=== PATIENT | male | born 1940 | race Caucasian/White ===

== ENCOUNTER 2020-09-26 10:26 | Emergency (ER) | payer MEDICARE, MEDICAID ==
[~2020-09-26] VITALS: Ht 165.1 cm; Wt 71.7 kg
[2020-09-26] MEDS ORDERED: CHOLESTEROL MED (10:42)
[2020-09-26] MEDS ORDERED: NEURONTIN 300M300 M2 (10:42)
[2020-09-26 11:11] LABS: ABSOLUTE EOSINOPHILS 0.2 thou/uL (0.0-0.7); ABSOLUTE LYMPHOCYTES 1.5 thou/uL (0.8-5.3); ABSOLUTE MONOCYTES 0.5 thou/uL (0.0-1.2); ABSOLUTE NEUTROPHILS 5.8 thou/uL (1.6-8.1); BASOPHILS 0.6 %; EOSINOPHILS 2.1 %; HEMATOCRIT 42.9 % (42.0-52.0); HEMOGLOBIN 14.1 gm/dL (14.0-18.0); LYMPHOCYTES 18.9 %; MCH 29.6 pg (26.0-34.0); MCHC 32.8 g/dL (28.0-37.0); MCV 90.2 fL (80.0-100.0); MONOCYTES 6.3 %; MPV 7.4 fl. (7.2-11.1); NUCLEATED RBCS 0 /100WBC; PLATELET COUNT* 192 thou/uL (150-400); POLYS 72.1 %; RBC 4.75 mil/uL (4.50-6.00); RDW-CV 13.5 % (10.5-14.5); WBC 8.1 thou/uL (4.0-11.0)
[2020-09-26 11:23] LABS: APTT 24.8 Seconds (25.0-31.3); INR 1.1; PROTIME 11.4 Seconds (9.20-11.50)
[2020-09-26 11:24] LABS: CALCIUM 9.7 mg/dL (8.5-10.1); CREATININE 0.7 mg/dL (0.6-1.3); POTASSIUM 3.8 mmol/L (3.5-5.1)
[2020-09-26 11:31] LABS: ALBUMIN 3.5 g/dL (3.4-5.0); MAGNESIUM 2.4 mg/dL (1.8-2.4); TOTAL BILIRUBIN 0.8 mg/dL (<0.1-1.0); TOTAL PROTEIN 8.1 g/dL (6.4-8.2)
[2020-09-26] MEDS ORDERED: HYDROCODON-ACE1 EAC7 PO (11:36)
[2020-09-26] MEDS ORDERED: ACYCLOVIR 800800 MG PO (11:36)
[2020-09-26 13:25] VITALS: BP 108/57
--- NOTE | 2020-09-27 09:43 | EKG ---
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
== END 2020-09-26 13:26 | disposition home or self-care (01) ==
LOC: M.ERS 10:26
PROVIDERS: Emergency Medicine Emergency Medical Services
DX: B02.9 Zoster without complications (principal); E78.00 Pure hypercholesterolemia, unspecified

== ENCOUNTER 2020-11-30 22:02 | Observation (INO) | payer MEDICARE, MEDICAID ==
[~2020-11-30] VITALS: Ht 152.4 cm; Wt 73.5 kg
[~2020-11-30 22:02] MED LIST: ACYCLOVIR 800800 MG PO; CHOLESTEROL MED; HYDROCODON-ACE1 EAC7 PO; NEURONTIN 300M300 M2
[2020-11-30 22:04] VITALS: BP 131/83
[2020-11-30] MEDS ORDERED: HYSINGLA ER40 MG PO (22:22)
[2020-11-30 22:23] LABS: ABSOLUTE BASOPHILS 0.1 thou/uL (0.0-0.2); ABSOLUTE EOSINOPHILS 0.4 thou/uL (0.0-0.7); ABSOLUTE LYMPHOCYTES 2.4 thou/uL (0.8-5.3); ABSOLUTE MONOCYTES 0.6 thou/uL (0.0-1.2); ABSOLUTE NEUTROPHILS 3.5 thou/uL (1.6-8.1); EOSINOPHILS 5.2 %; HEMATOCRIT 40.6 % (42.0-52.0); HEMOGLOBIN 13.8 gm/dL (14.0-18.0); LYMPHOCYTES 34.7 %; MCH 30.7 pg (26.0-34.0); MCV 90.5 fL (80.0-100.0); MONOCYTES 8.6 %; NUCLEATED RBCS 0 /100WBC; PLATELET COUNT* 236 thou/uL (150-400); POLYS 50.5 %; RBC 4.49 mil/uL (4.50-6.00); RDW-CV 14.1 % (10.5-14.5)
[2020-11-30 22:33] LABS: CALCIUM 8.7 mg/dL (8.5-10.1); CREATININE 0.7 mg/dL (0.6-1.3); POTASSIUM 3.8 mmol/L (3.5-5.1)
[2020-11-30 22:38] LABS: ALBUMIN 3.6 g/dL (3.4-5.0); TOTAL BILIRUBIN 0.4 mg/dL (<0.1-1.0); TOTAL PROTEIN 7.8 g/dL (6.4-8.2)
[2020-12-01] LABS: URINE BILIRUBIN NEGATIVE (Negative); URINE BLOOD NEGATIVE (Negative); URINE CLARITY CLEAR; URINE COLOR YELLOW; URINE GLUCOSE-RANDOM NEGATIVE (Negative); URINE KETONES NEGATIVE (Negative); URINE LEUKOCYTES-REFLEX NEGATIVE (Negative); URINE NITRITE-REFLEX NEGATIVE (Negative); URINE PROTEIN NEGATIVE (Negative); URINE SPECIFIC GRAVITY <= 1.005 (1.005-1.030); URINE UROBILINOGEN 0.2 E.U./dl (0.2-1.0)
[2020-12-01 02:10] VITALS: BP 149/69
[2020-12-01 02:20] VITALS: BP 154/71
--- NOTE | 2020-12-01 06:33 | NUR ---
PATIENT ADMITTED TO ROOM 227 FROM THE ER AT APPROXIMATELY 0220. REPORT GIVEN FROM ER NURSE HARISH. ASSESSMENT CHARTED. PATIENT ORIENTED TO ROOM AND FALL EDUCATION GIVEN AND FALL AGREEMENT SIGNED BY DAUGHTER FOR HER FATHER. PATIENT DOES NOT SPEAK KHMER AND DAUGHTERS ARE WITH PATIENT IN ROOM AND HELPING TO TRANSLATE. IV IN RIGHT AC-SL. VSS ON RA. PATIENT INSTRUCTED TO USE CALL LIGHT WHEN NEEDING ASSISTANCE. HOURLY ROUNDS MADE. WILL CONTINUE WITH PLAN OF CARE AND NURSING TO MONITOR.
[2020-12-01 08:00] VITALS: BP 114/63
[2020-12-01 08:47] LABS: ABSOLUTE BASOPHILS 0.1 thou/uL (0.0-0.2); ABSOLUTE EOSINOPHILS 0.2 thou/uL (0.0-0.7); ABSOLUTE LYMPHOCYTES 1.6 thou/uL (0.8-5.3); ABSOLUTE MONOCYTES 0.3 thou/uL (0.0-1.2); ABSOLUTE NEUTROPHILS 3.8 thou/uL (1.6-8.1); BASOPHILS 0.9 %; EOSINOPHILS 3.8 %; HEMATOCRIT 39.3 % (42.0-52.0); HEMOGLOBIN 13.3 gm/dL (14.0-18.0); LYMPHOCYTES 26.9 %; MCH 30.1 pg (26.0-34.0); MCHC 33.9 g/dL (28.0-37.0); MCV 88.9 fL (80.0-100.0); MONOCYTES 5.3 %; MPV 7.5 fl. (7.2-11.1); NUCLEATED RBCS 0 /100WBC; PLATELET COUNT* 191 thou/uL (150-400); POLYS 63.1 %; RBC 4.42 mil/uL (4.50-6.00); RDW-CV 13.6 % (10.5-14.5); WBC 6.1 thou/uL (4.0-11.0)
--- NOTE | 2020-12-01 10:34 | EKG ---
[place] [address] ELECTROCARDIOGRAM REPORT Name: JEREMIAS YOUSSEF Room: [address]R.#: [id number] Admission: 12/01/20 Attend Phys: Piedad Ribeiro MD Discharge: Date of : 36 Date of Service: 11/30/202206 Report #: [id number] THIS REPORT FOR: //name// [facility] ED Test Date: 2020-11-30 Test Time: 22:07:03 Pat Name: JEREMIAS YOUSSEF Department: Room: 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
--- NOTE | 2020-12-01 10:37 | EKG ---
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
[2020-12-01 12:00] VITALS: BP 108/56
[2020-12-01] MEDS ORDERED: LIPITOR20 MG PO (13:04)
[2020-12-01 13:22] LABS: CHOLESTEROL 154 mg/dL (<200); HDL CHOLESTEROL 37 mg/dL (>40); LDL CHOLESTEROL 88 mg/dL (<100); SERUM ASSESSMENT Clear; TC:HDL 4.2 Ratio (Not establshd); TRIGLYCERIDE 145 mg/dL (<150); VLDL 29 mg/dL (<40)
--- NOTE | 2020-12-01 14:27 | NUR ---
CM ASSESSEMENT: PT A&O. PT RESIDES AT HOME WITH DTR AND SHE ASSIST HIM AT HOME WITH CARES. PT'S DTR INFORMS THAT THE PT USES A WHEELCHAIR FOR MOBILITY. PT HAS 0 HX OF HH OR SNF. PT MAY BENEFIT FROM HH AT D/C. HOWEVER WHEN OFFERED PT'S DTR DECLINED, AND INFORMS THAT SHE HELPS HIM AND DOES NOT WANT HH. CM WILL REMAIN AVAILABLE TO ASSIST AND FOLLOW NEEDED.
--- NOTE | 2020-12-01 16:26 | EXE ---
[place] [address] STRESS ECHOCARDIOGRAM Name: JEREMIAS YOUSSEF Room: [facility] M.R.#: [id number] Admission: 12/01/20 Attend Phys: Piedad Ribeiro MD Discharge: Date of : 36 Date of Service: 12/01/20 1626 Report #: [id number] THIS REPORT FOR: cc: Gigi Renee MD, Erick J. MD Blick,Eusebio Mahmood MD [facility] ~ APPROVED REPORT Study performed: 12/01/2020 13:21:57 Exam: Stress Echocardiogram Indication: Chest pain Patient Location: In-Patient Stress Nurse: Clarita Lindsey RN Room #: 227 Supervising Physician: Eusebio Pham MD Ht: 5 ft 0 in HR: 51 bpm BP: 133/81 mmHg Medical History Cardiac Risk Factors: Age, , Hyperlipidemia, FHX of CAD Procedure The patient underwent an Exercise Stress Test using the Vipin Protocol. Blood pressure, heart rate, and EKG were monitored. An Echocardiogram was performed by compounding pharmacy technician in four stages in quad fashion. At peak stress, four selected images were obtained and placed side by side with resting images for comparison. Stress Test Details Stress Test: Exercise stress testing was performed using a Vipin protocol. HR Resting HR: 51 bpm Max Heart Rate (APMHR): 138 bpm Max HR Achieved: 101 bpm Target HR (85% APMHR): 117 bpm % of APMHR: 73 Recovery HR: 62 bpm HR response to stress: Normal HR response to stress BP Resting BP: 133/81 mmHg Max BP: 165/69 [place] [address] STRESS ECHOCARDIOGRAM Name: JEREMIAS YOUSSEF Room: [address]#: [id number] Admission: 12/01/20 Attend Phys: Piedad Ribeiro MD Discharge: Date of : 36 Date of Service: 12/01/20 1626 Report #: [id number] Recovery BP: 134/63 mmHg BP response to stress: Normal blood pressure response to stress. ECG Resting ECG: Sinus Rhythm Stress ECG: Sinus Tachycardia ST Change: None Maximum ST Deviation: 0 mm Arrhythmia: None Recovery ECG: Sinus Rhythm Recovery ST Change: None Recovery ST Deviation: 0 mm Recovery Arrhythmia: VPC Clinical Reason for Termination: Maximal effort Exercise duration: 4 min 31 sec Highest Stage Achieved: Modified Stage 2 Exercise capacity: 4.66 METs Pre-Stress Echo The resting Echocardiogram showed normal left ventricular contractility with an estimated Ejection Fraction of about 55-60%. Post-Stress Echo The stress Echocardiogram showed normal left ventricular contractility with an estimated Ejection Fraction of about >70%. Compared to rest, there were no stress-induced wall motion abnormalities. Conclusion Clinical Response: Equivocal Exercise Capacity: Below Average Stress ECG Response: Non-ischemic Stress Echo Images: Non-ischemic Indeterminate stress echo for predicting future cardiac events secondary to inability to achieve target heart rate. Other Information Study Quality: Fair <Conclusion> [place] [address] STRESS ECHOCARDIOGRAM Name: DOMONIQUEJEREMIAS [address] [id number] Admission: 12/01/20 Attend Phys: Piedad Ribeiro MD Discharge: Date of : 36 Date of Service: 12/01/20 1626 Report #: [id number] Indeterminate stress echo for predicting future cardiac events secondary to inability to achieve target heart rate. <ELECTRONICALLY SIGNED> By: Eusebio Pham MD, [facility] 12/01/20 1626 25 25 Eusebio Pham MD, [facility] /INF
[2020-12-01 16:34] VITALS: BP 121/64
[2020-12-01 16:46] VITALS: BP 121/64
--- NOTE | 2020-12-01 17:12 | NUR ---
RECEIVED REPORT AROUND 0715. ASSUMED CARE. VS AND ASSESSMENT CHARTED. IV INTACT RIGHT AC. HEART MONITOR ATTACHED AT SB. PT HAD STRESS ECHO TODAY. DISCHARGE PENDING. DR GARCIA CALLED WITH STRESS RESULTS. NORMAL RESULTS. OK FOR D/C FROM CARDIAC [facility]AND [place]. DISCHARGE PACKET GIVEN TO PT AND FAMILY. COMMUNICATED UNDERSTANDING. IV TAKEN OUT. HEART MONITOR OFF. PT LEFT UNIT VIA WHEEL CHAIR WITH NURSING STAFF AND ALL BELONGINGS AT 1715.
== END 2020-12-01 17:15 | disposition home or self-care (01) ==
LOC: M.ERS 22:02 → M.TBA-ER 12-01 01:01 → M.2W 12-01 01:01
PROVIDERS: Internal Medicine; Personal Emergency Response Attendant; ADMIT Family Medicine; ATTEND Family Medicine
DX: M94.0 Chondrocostal junction syndrome [Tietze] (principal); Z20.822 Contact with and (suspected) exposure to COVID-19; E78.00 Pure hypercholesterolemia, unspecified; G89.29 Other chronic pain; B02.22 Postherpetic trigeminal neuralgia; E11.42 Type 2 diabetes mellitus with diabetic polyneuropathy; M47.816 Spondylosis without myelopathy or radiculopathy, lumbar region; Z79.899 Other long term (current) drug therapy

== ENCOUNTER 2021-03-10 08:57 | Emergency (ER) | payer MEDICARE, MEDICAID ==
[~2021-03-10] VITALS: Ht 160 cm; Wt 72.6 kg
[~2021-03-10 08:57] MED LIST changes: +HYSINGLA ER40 MG PO; +LIPITOR20 MG PO
[2021-03-10 09:31] LABS: ABSOLUTE BASOPHILS 0.1 thou/uL (0.0-0.2); ABSOLUTE EOSINOPHILS 0.1 thou/uL (0.0-0.7); ABSOLUTE LYMPHOCYTES 1.6 thou/uL (0.8-5.3); ABSOLUTE MONOCYTES 0.5 thou/uL (0.0-1.2); ABSOLUTE NEUTROPHILS 5.1 thou/uL (1.6-8.1); BASOPHILS 0.7 %; EOSINOPHILS 1.6 %; HEMATOCRIT 40.6 % (42.0-52.0); HEMOGLOBIN 13.6 gm/dL (14.0-18.0); LYMPHOCYTES 22.3 %; MCH 29.8 pg (26.0-34.0); MCHC 33.5 g/dL (28.0-37.0); MCV 89.1 fL (80.0-100.0); MONOCYTES 6.2 %; MPV 7.1 fl. (7.2-11.1); NUCLEATED RBCS 0 /100WBC; PLATELET COUNT* 202 thou/uL (150-400); POLYS 69.2 %; RBC 4.55 mil/uL (4.50-6.00); RDW-CV 13.9 % (10.5-14.5); WBC 7.4 thou/uL (4.0-11.0)
[2021-03-10 09:38] LABS: CALCIUM 8.7 mg/dL (8.5-10.1); CREATININE 0.8 mg/dL (0.6-1.3); POTASSIUM 4.1 mmol/L (3.5-5.1)
[2021-03-10 09:45] LABS: ALBUMIN 3.5 g/dL (3.4-5.0); TOTAL BILIRUBIN 0.6 mg/dL (<0.1-1.0); TOTAL PROTEIN 7.6 g/dL (6.4-8.2)
[2021-03-10 10:50] VITALS: BP 129/62
--- NOTE | 2021-03-11 08:33 | EKG ---
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 : 1940 Requested By: Nate Riley Order Number: [id number] MD: Eusebio Pham Measurements Intervals [place] Rate: 54 P: 39 [place]: 147 QRS: 12 QRSD: 94 T: 26 QT: 438 QTc: 416 Interpretive Statements Sinus bradycardia Abnormal R-wave progression, early transition Compared to ECG 12/01/2020 10:26:05 no change Electronically Signed On 03-11-2021 8:33:16 CDT by Eusebio Pham [email or web address] <ELECTRONICALLY SIGNED> By: Eusebio Pham MD, [facility] 03/11/21 0833 0858 Eusebio Pham MD, [facility] /EPI
== END 2021-03-10 10:51 | disposition home or self-care (01) ==
LOC: M.ERS 08:57
PROVIDERS: Emergency Medicine
DX: G89.29 Other chronic pain (principal); Z20.822 Contact with and (suspected) exposure to COVID-19; R07.89 Other chest pain; B02.23 Postherpetic polyneuropathy; E78.00 Pure hypercholesterolemia, unspecified

== ENCOUNTER 2021-03-18 16:42 | Emergency (ER) | payer MEDICARE, MEDICAID ==
[~2021-03-18] VITALS: Ht 157.5 cm; Wt 71.7 kg
[2021-03-18] MEDS ORDERED: HYSINGLA ER40 MG PO (16:52)
[2021-03-18 17:09] LABS: ABSOLUTE BASOPHILS 0.1 thou/uL (0.0-0.2); ABSOLUTE EOSINOPHILS 0.3 thou/uL (0.0-0.7); ABSOLUTE LYMPHOCYTES 2.4 thou/uL (0.8-5.3); ABSOLUTE MONOCYTES 0.5 thou/uL (0.0-1.2); ABSOLUTE NEUTROPHILS 3.8 thou/uL (1.6-8.1); BASOPHILS 1.1 %; HEMOGLOBIN 13.6 gm/dL (14.0-18.0); LYMPHOCYTES 33.5 %; MCHC 33.9 g/dL (28.0-37.0); MCV 88.4 fL (80.0-100.0); MPV 7.6 fl. (7.2-11.1); NUCLEATED RBCS 0 /100WBC; PLATELET COUNT* 205 thou/uL (150-400); POLYS 54.4 %; RBC 4.53 mil/uL (4.50-6.00); RDW-CV 14.1 % (10.5-14.5)
[2021-03-18 17:12] LABS: CREATININE 0.8 mg/dL (0.6-1.3); POTASSIUM 4.1 mmol/L (3.5-5.1)
[2021-03-18 17:22] LABS: ALBUMIN 3.7 g/dL (3.4-5.0); MAGNESIUM 2.3 mg/dL (1.8-2.4); TOTAL BILIRUBIN 0.7 mg/dL (<0.1-1.0); TOTAL PROTEIN 7.7 g/dL (6.4-8.2)
[2021-03-18] MEDS ORDERED: LIDODERM1 EACH TOP (17:56)
[2021-03-18 18:54] VITALS: BP 131/61
--- NOTE | 2021-03-21 11:32 | EKG ---
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: : 1940 Requested By: Facundo Arevalo Order Number: [id number] MD: Romain Ashraf Measurements Intervals [place] Rate: 52 P: 25 [place]: 154 QRS: -3 QRSD: 88 T: 7 QT: 439 QTc: 409 Interpretive Statements Sinus rhythm at a bradycardic rate Consider RVH or posterior infarct Baseline wander in lead(s) II,III,aVF Compared to ECG 03/10/2021 08:58:30 R wave is more prominent in V1 Electronically Signed On 03-21-2021 11:32:08 CDT by Romain Ashraf [email or web address] <ELECTRONICALLY SIGNED> By: Romain Ashraf MD, [facility] 03/21/21 1132 41 41 Romain Ashraf MD, [facility] /EPI
== END 2021-03-18 18:56 | disposition home or self-care (01) ==
LOC: M.ERS 16:42
PROVIDERS: Emergency Medicine Emergency Medical Services
DX: B02.29 Other postherpetic nervous system involvement (principal); R09.81 Nasal congestion; R07.89 Other chest pain; E78.00 Pure hypercholesterolemia, unspecified; Z79.899 Other long term (current) drug therapy

== ENCOUNTER → 2021-03-31 | Outpatient (CLI) | payer MEDICARE, MEDICAID ==
[~2021-03-31] MED LIST changes: +LIDODERM1 EACH TOP; +METHADONE HCL5 MG PO; +NEURONTIN 300M300 M2 PO
== END ==
LOC: M.PC 11:40
PROVIDERS: ATTEND Anesthesiology Pain Medicine
DX: G89.29 Other chronic pain (principal); R07.89 Other chest pain; E78.00 Pure hypercholesterolemia, unspecified; B02.29 Other postherpetic nervous system involvement; Z79.899 Other long term (current) drug therapy

== ENCOUNTER → 2021-05-05 | Outpatient (CLI) | payer MEDICARE, MEDICAID | LOC: M.PC 09:07 | PROVIDERS: ATTEND Anesthesiology Pain Medicine | DX: B02.29 Other postherpetic nervous system involvement (principal); E78.00 Pure hypercholesterolemia, unspecified ==

== ENCOUNTER → 2021-06-02 | Outpatient (CLI) | payer MEDICARE, MEDICAID | LOC: M.PC 09:19 | PROVIDERS: ATTEND Anesthesiology Pain Medicine | DX: B02.29 Other postherpetic nervous system involvement (principal); E78.00 Pure hypercholesterolemia, unspecified; G89.29 Other chronic pain; Z79.899 Other long term (current) drug therapy ==

== ENCOUNTER → 2021-07-21 | Outpatient (CLI) | payer MEDICARE, MEDICAID ==
[~2021-07-21] MED LIST changes: +LINZESS72 MCG PO
== END ==
LOC: M.PC 09:24
PROVIDERS: ATTEND Anesthesiology Pain Medicine
DX: G89.29 Other chronic pain (principal); B02.29 Other postherpetic nervous system involvement; E78.00 Pure hypercholesterolemia, unspecified; Z79.899 Other long term (current) drug therapy